=== PATIENT | male | born 1990 | race African-American/Black ===

== ENCOUNTER 2022-01-28 11:57 | Emergency (ER) | payer BC ==
[~2022-01-28] VITALS: Ht 170.2 cm; Wt 91.0 kg
[2022-01-28] MEDS ORDERED: IBUPROFEN 600MG TABLET PO STA (13:20)
[2022-01-28 14:00] VITALS: BP 144/95
[2022-01-28] MEDS ORDERED: IBUP-2029 PO (14:08)
== END 2022-01-28 14:33 | disposition home or self-care (01) ==
LOC: ER 12:58
DX: S93.691A Other sprain of right foot, initial encounter (principal); M25.571 Pain in right ankle and joints of right foot; V49.49XA Driver injured in collision with other motor vehicles in traffic accident, initial encounter; Y93.89 Activity, other specified; Y92.89 Other specified places as the place of occurrence of the external cause; Y99.8 Other external cause status
CPT/HCPCS: 73610; 73630; 99284; Z7610